=== PATIENT | male | born 1980 | race Asian ===

== ENCOUNTER 2025-03-30 06:38 | Outpatient (REF) | payer OTHER, SELFPAY ==
--- NOTE | ~2025-03-30 | US_ITS ---
CLINICAL HISTORY: ELEVATED LFTS US abdomen complete Comparison: None Findings: The visualized pancreas is normal. The aorta and inferior vena cava are normal caliber. Somewhat coarse and increased hepatic echotexture. 5 mm hepatic cyst. Liver measures 14.1 cm in length. There is no intrahepatic bile duct dilatation. The common duct is 3 mm in diameter. The gallbladder is normal. The main portal vein is antegrade. The right kidney is 11.2 cm in length. The left kidney is 11.7 cm in length. Unremarkable kidneys. The spleen is normal. Spleen measures 11.1 cm in length No ascites. IMPRESSION: Somewhat coarse and increased hepatic echotexture suggestive of hepatic steatosis. This document has been electronically signed by: Alexandra Barragan MD on 03/30/2025 11:28:44
== END 2025-03-30 06:39 | disposition home or self-care (01) ==
LOC: HO.UMASIMG 06:38
PROVIDERS: Visit Provider Family Medicine
DX: K76.0 Fatty (change of) liver, not elsewhere classified (principal)
CPT/HCPCS: 76700

== ENCOUNTER → 2025-03-30 10:30 | Outpatient (BNV) | payer OTHER, SELFPAY | PROVIDERS: Visit Provider Radiology Diagnostic Radiology | DX: K76.0 Fatty (change of) liver, not elsewhere classified (principal) | CPT/HCPCS: 76700 ==